=== PATIENT | male | born 1965 | race Caucasian/White ===

== ENCOUNTER 2018-10-01 16:46 | Emergency (ER) | payer OTHER ==
[~2018-10-01] VITALS: Ht 180.3 cm; Wt 95.3 kg
[2018-10-01] MEDS ORDERED: HYDROCODONE/APAP 10MG-325MG TAB PO ONE (17:00)
--- NOTE | 2018-10-01 18:37 | Diagnostic Imaging Report ---
RIGHT ELBOW - 4 Images HISTORY: Swollen, pain COMPARISON: None available. FINDINGS: Bones: No acute displaced fracture. No aggressive osseous lesion. Small olecranon enthesophyte. Joints: Osseous alignment is within normal limits and the joint spaces are well-maintained. Soft tissues: Dorsal soft tissue swelling centered over the olecranon process. IMPRESSION: Small olecranon enthesophyte and adjacent soft tissue swelling, correlate for olecranon bursitis. Signed by: Dr. Aj Samuel D.O., M.M.M. on 10/01/2018 6:34 PM
[2018-10-01] MEDS ORDERED: KETOROLAC TROMETHAMINE 60 MG/2 ML VIAL IM ONE (18:45)
[2018-10-01] MEDS ORDERED: IBUPROFEN400 MG PO (18:45)
[2018-10-02 01:44] VITALS: BP 157/90
== END 2018-10-01 19:20 | disposition home or self-care (01) ==
LOC: ER 16:46
DX: M25.521 Pain in right elbow (principal); M70.21 Olecranon bursitis, right elbow; I10 Essential (primary) hypertension
CPT/HCPCS: 73080; 99283; J1885